=== PATIENT | male | born 1950 | race Caucasian/White ===

== ENCOUNTER 2018-03-01 12:54 | Emergency (ER) | payer MEDICARE, OTHER ==
[~2018-03-01] VITALS: Ht 172.7 cm; Wt 95.2 kg
[~2018-03-01 12:54] MED LIST: AMLODIPINE BESYL5 MG PO; CRESTOR20 MG PO; METFORMIN HCL850 MG PO; MICARDIS HCT 81 EAC1 PO
[2018-03-01] MEDS ORDERED: AMLODIPINE BESY10 MG PO (13:05)
[2018-03-01] MEDS ORDERED: HYDROCHLOROTH12.5 MG PO (13:05)
[2018-03-01] MEDS ORDERED: ATORVASTATIN CA40 MG PO (13:05)
[2018-03-01] MEDS ORDERED: LOSARTAN POTAS100 MG PO (13:05)
--- NOTE | 2018-03-02 07:39 | EKG ---
[facility] [address] [facility] [place] [address] Signed Normal sinus rhythm Right bundle branch block Abnormal ECG No previous ECGs available Confirmed by OSMANY LUO MD [id number] on 03/02/2018 7:39:16 AM Electronically Signed By: OSMANY LUO MD 03/02/18 0739 PATIENT NAME: YOUSIF BRIGHT Electrocardiogram DATE OF : 48 PHYSICIAN: OSMANY LUO MD REPORT #: [id number] REPORT IS CONFIDENTIAL AND NOT TO BE RELEASED WITHOUT AUTHORIZATION
== END 2018-03-01 15:15 | disposition home or self-care (01) ==
LOC: ED 12:54
DX: T63.441A Toxic effect of venom of bees, accidental (unintentional), initial encounter (principal); R55 Syncope and collapse; I10 Essential (primary) hypertension; E11.9 Type 2 diabetes mellitus without complications; E78.00 Pure hypercholesterolemia, unspecified; Z79.899 Other long term (current) drug therapy; Z79.84 Long term (current) use of oral hypoglycemic drugs
CPT/HCPCS: 70450; 71045; 80053; 84484; 85025; 93005; 93010; 99284

== ENCOUNTER 2025-03-04 16:40 | Emergency (ER) | payer MEDICARE, OTHER ==
[~2025-03-04] VITALS: Ht 172.7 cm; Wt 95.3 kg
[~2025-03-04 16:40] MED LIST changes: +AMLODIPINE BESY10 MG PO; +ATORVASTATIN CA40 MG PO; +HYDROCHLOROTH12.5 MG PO; +LOSARTAN POTAS100 MG PO
[2025-03-04] MEDS ORDERED: TADALAFIL5 M1 PO (17:03)
[2025-03-04] MEDS ORDERED: IBUPROFEN 800 MG TAB PO ONE (18:00)
[2025-03-04] MEDS ORDERED: DEXAMETHASONE SOD PHOS 10 MG/ML VIAL IM ONE (20:15)
[2025-03-04] MEDS ORDERED: BUPIVACAINE 0.25% W/ EPI 30 ML SDV DENTAL PRN (20:15)
[2025-03-04] MEDS ORDERED: DEXAMETHASONE SOD PHOS 10 MG/ML VIAL IV ONE (20:15)
[2025-03-04] MEDS ORDERED: IBU600 MG PO (20:37)
[2025-03-04 20:59] VITALS: BP 139/87
== END 2025-03-04 21:00 | disposition home or self-care (01) ==
LOC: ED 16:40
DX: M75.51 Bursitis of right shoulder (principal); I10 Essential (primary) hypertension; E11.9 Type 2 diabetes mellitus without complications; E78.00 Pure hypercholesterolemia, unspecified; Z79.899 Other long term (current) drug therapy
CPT/HCPCS: 20552; 99283-25; A9270; J1100